=== PATIENT | female | born 1995 | race African-American/Black ===

== ENCOUNTER 2017-11-10 14:43 | Emergency (ER) | payer BC ==
[2017-11-10 15:17] VITALS: BP 125/89
--- NOTE | 2017-11-10 15:38 | UC ---
Complaint Female HPI - HPI Summary HPI Summary: patient is concerned she may have been exposed to an std---patient thinks partners said he had BELL---(i explained to her this means NOT gonorrhea) patient is still very concerned that she may have miss understood and is requesting treatment and testing - History Of Current Complaint Chief Complaint: [facility] Stated Complaint: PRIVATE Time Seen by Provider: 11/10/17 15:26 Hx Obtained From: Patient Hx Last Menstrual Period: now ?: No Pain Intensity: 0 - Allergies/Home Medications Allergies/Adverse Reactions: Allergies Allergy/AdvReac Type Severity Reaction Status Date / Time No Known Allergies Allergy Verified 11/10/17 15:17 Home Medications: Home Medications NK [No Home Medications Reported] 11/10/17 [History Confirmed 11/10/17] PMH/Surg Hx/FS Hx/Imm Hx Previously Healthy: Yes - Surgical History Surgical History: None - Family History Known Family History: Positive: None - Social History Occupation: Student Lives: With Family Alcohol Use: Occasionally Substance Use Type: Marijuana Smoking Status (MU): Never Smoked Tobacco - Immunization History Most Recent Influenza Vaccination: 03/05/15 Most Recent Pneumonia Vaccination: never Review of Systems Constitutional: Negative Skin: Negative Eyes: Negative ENT: Negative Respiratory: Negative Cardiovascular: Negative Gastrointestinal: Negative Genitourinary: Negative Motor: Negative Neurovascular: Negative Musculoskeletal: Negative Neurological: Negative Psychological: Negative Is Patient Immunocompromised?: No All Other Systems Reviewed And Are Negative: Yes Physical Exam Triage Information Reviewed: Yes Appearance: Well-Appearing, No Pain Distress, Well-Nourished Vital Signs: Initial Vital Signs Temp 98.9 F 11/10/17 15:13 Pulse 87 11/10/17 15:13 Resp 12 11/10/17 15:13 BP 125/89 11/10/17 15:13 Pulse Ox 1 11/10/17 15:13 Vital Signs Reviewed: Yes Eye Exam: Normal Eyes: Positive: Conjunctiva Clear ENT Exam: Normal ENT: Positive: Normal ENT inspection, Hearing grossly normal, Pharynx normal Dental Exam: Normal Neck exam: Normal Neck: Positive: Supple, Nontender Respiratory Exam: Normal Respiratory: Positive: Chest non-tender, No respiratory distress, No accessory muscle use Cardiovascular Exam: Normal Cardiovascular: Positive: RRR, Pulses Normal, Brisk Capillary Refill Musculoskeletal Exam: Normal Musculoskeletal: Positive: Strength Intact, ROM Intact Neurological Exam: Normal Neurological: Positive: Alert, Muscle Tone Normal Psychological Exam: Normal Psychological: Positive: Normal Response To Family Skin Exam: Normal Complaint Female Dx - Course Course Of Treatment: sti testing, post exposure treatment - Differential Dx/Diagnosis Provider Diagnoses: std post exposure treatment Discharge - Sign-Out/Discharge Documenting (check all that apply): Patient Departure - Discharge Plan Condition: Stable Disposition: HOME Patient Education Materials: Safe Sex (ED) Referrals: [facility] [Outside] - 2 Weeks - Billing Disposition and Condition Condition: STABLE Disposition: Home
[2017-11-10] MEDS ORDERED: Azithromycin TAB* 250 MG PO ONE (16:27)
[2017-11-10] MEDS ORDERED: cefTRIAXone VIAL(*) 250 MG VIAL IM ONE (16:27)
[2017-11-10] MEDS ORDERED: Lidocaine 1%* 5 ML VIAL INJ ONE (16:28)
== END 2017-11-10 16:47 | disposition home or self-care (01) ==
LOC: UCEAST 14:43
DX: Z20.2 Contact with and (suspected) exposure to infections with a predominantly sexual mode of transmission (principal)
CPT/HCPCS: 81003; 84702; 87491; 87591; 96372; 99212; A9270-GY; G0463; J0696